=== PATIENT | female | born 1980 | race Caucasian/White ===

== ENCOUNTER 2021-11-18 02:01 | Emergency (ER) | payer BC, OTHER ==
[~2021-11-18] VITALS: Ht 165.1 cm; Wt 72.6 kg
[2021-11-18 02:31] VITALS: BP 114/72
[2021-11-18 03:44] LABS: Urine Bacteria FEW /hpf (None Seen); Urine Blood Negative /uL (Negative); Urine Mucus FEW (None Seen); Urine Specific Gravity 1.016 (1.001-1.035); Urine WBC 1 /hpf (0 - 5)
[2021-11-18] MEDS ORDERED: SODIUM CHLORIDE 0.9% 1,000 ML IV ONE (04:45)
[2021-11-18] MEDS ORDERED: IBUP800T27 PO (06:14)
[2021-11-18] MEDS ORDERED: KETOROLAC TROMETH 60MG/2ML VIAL IM ONE (06:15)
== END 2021-11-18 06:22 | disposition home or self-care (01) ==
LOC: ER 02:01
DX: U07.1 COVID-19 (principal); M54.42 Lumbago with sciatica, left side; M54.41 Lumbago with sciatica, right side
CPT/HCPCS: 36415; 72100; 81001; 87426; 87804; 96360; 96372; 99284; J1885; J7030

== ENCOUNTER 2022-11-21 19:24 | Emergency (ER) | payer BC ==
[~2022-11-21] VITALS: Ht 162.6 cm; Wt 84.1 kg
[~2022-11-21 19:24] MED LIST: IBUP-1456 PO
[2022-11-21 19:41] VITALS: BP 135/90
[2022-11-21] MEDS ORDERED: AUG875T PO (22:05)
[2022-11-21] MEDS ORDERED: AMOXICILLIN/CLAVUL 875 MG TAB PO ONE (22:15)
[2022-11-21] MEDS ORDERED: TETANUS-DIPTH-ACEL PERTUSSIS 0.5ML SYR Tdap IM ONE (22:15)
== END 2022-11-21 22:37 | disposition home or self-care (01) ==
LOC: ER 19:24
DX: S61.452A Open bite of left hand, initial encounter (principal); E03.9 Hypothyroidism, unspecified; F17.210 Nicotine dependence, cigarettes, uncomplicated; Z90.710 Acquired absence of both cervix and uterus; Z79.2 Long term (current) use of antibiotics; Z79.1 Long term (current) use of non-steroidal anti-inflammatories (NSAID); W54.0XXA Bitten by dog, initial encounter; Y93.89 Activity, other specified; Y92.89 Other specified places as the place of occurrence of the external cause; Y99.8 Other external cause status
CPT/HCPCS: 73130; 90471; 90715